=== PATIENT | female | born 1950 | race Two or more races ===

== ENCOUNTER 2019-01-14 09:41 | Outpatient (CLI) | payer OTHER | END 2019-01-14 09:46 | disposition home or self-care (01) | LOC: MAMO-SONO 09:41 | DX: Z12.31 Encounter for screening mammogram for malignant neoplasm of breast (principal); N60.11 Diffuse cystic mastopathy of right breast; N60.12 Diffuse cystic mastopathy of left breast; Z87.898 Personal history of other specified conditions; Z09 Encounter for follow-up examination after completed treatment for conditions other than malignant neoplasm ==